=== PATIENT | male | born 1940 | race Caucasian/White ===

== ENCOUNTER 2016-09-19 20:01 | Emergency (ER) | payer OTHER ==
[2016-09-19 20:15] VITALS: TEMP 97.7
--- NOTE | 2016-09-19 20:34 | EDPHY ---
H & P Stated Complaint: high BP at [facility] 170/100 Time Seen by Provider: 09/19/16 20:34 - Personal History Current Tetanus/Diphtheria Vaccine: Yes Current Tetanus Diphtheria and Acellular Pertussis (TDAP): Yes Tetanus Vaccine Date: 2016 - Medical/Surgical History Hx Asthma: No Hx Chronic Respiratory Disease: No Hx Diabetes: No Hx Cardiac Disease: No Hx Renal Disease: No Hx Cirrhosis: No Hx Alcoholism: No Hx HIV/AIDS: No Hx Splenectomy or Spleen Trauma: No Other PMH: craniotomy 2009, S[facility], - Social History Smoking Status: Former smoker Constitutional: Initial Vital Signs Temperature (C) 36.5 C 09/19/16 20:11 Heart Rate 74 09/19/16 20:11 Respiratory Rate 16 09/19/16 20:11 Blood Pressure 106/100 H 09/19/16 20:11 O2 Sat (%) 95 09/19/16 20:11 O2 Delivery Mode Room Air Allergies/Adverse Reactions: No Known Allergies Allergy (Unverified 09/19/16 20:16) Home Medications: Medication Instructions Recorded ASPIRIN 09/19/16 Citalopram 09/19/16 Coq-10 09/19/16 Glucosamine 09/19/16 LaMICtal 09/19/16 Losartan Potassium 09/19/16 [place] 1,000 mg Softgel 09/19/16 VITAMIN D 09/19/16 Medical Decision Making ED Course/Re-evaluation: CHIEF COMPLAINT: High blood pressure. HISTORY OF PRESENT ILLNESS: The patient is a 76-year-old male with a history of hypertension on Losartan who presents for high blood pressure readings. He reports that his blood pressure at [facility] was 174/100. He has been compliant with his Losartan. He denies any symptoms with the blood pressure. REVIEW OF SYSTEMS: A 10 point review of systems was performed and is negative with the exception of the elements mentioned in the history of present illness. PHYSICAL EXAM: HR, BP, O2 Sat, RR. Temp noted General Appearance: Alert, well hydrated, appropriate, and non-toxic appearing. Head: Atraumatic without scalp tenderness or obvious injury Eyes: Pupils equal, round, reactive to light and accommodation, EOMI, no trauma , no injection. Ears: Clear bilaterally, no perforation, normal landmarks Nose: Atraumatic, no rhinorrhea, clear. Throat: There is no erythema or exudates, no lesions, normal tonsils, mucus membranes moist. Neck: Supple, 2+ carotid upstroke, nontender, no lymphadenopathy. Respiratory: No retractions, no distress, no wheezes, and no accessory muscle use. Lungs are clear to auscultation bilaterally. Cardiovascular: Regular rate and rhythm, no murmurs, rubs, or gallops. Bilateral carotid, radial, dorsalis pedis, and posterior tibial pulses intact. Good capillary refill all extremities. Gastrointestinal: Abdomen is soft, nontender, non-distended, no masses, no rebound, no guarding, no peritoneal signs. Musculoskeletal: Normal active ROM of all extremities, atraumatic. Neurological: Alert, appropriate, and interactive. The patient has normal DTRs and non-focal cranial nerves, motor, sensory, and cerebellar exam. Skin: No rashes, good turgor, no nodules on palpation. Past medical history:Hypertension, seizure. Past surgical history:Denies. Family history:N/A. Social history:Lives at [facility]. DIAGNOSTICS/PROCEDURES/CRITICAL CARE TIME: DIFFERENTIAL DIAGNOSIS: MEDICAL DECISION MAKIN-year-old male presents with hypertension. He has a history of hypertension and takes Losartan. Today his blood pressure was 174/100 which is "astronomical " for him. In the ED today his blood pressure is 157/94. He has no symptoms currently. He shows no evidence of end-organ damage, hypertensive urgency, or hypertensive emergency. We will give him an extra dose of his 25mg Losartan and then discharge back to the floor. Departure - Departure Disposition: Home, Routine, Self-Care Clinical Impression: Hypertension Qualifiers: Hypertension type: unspecified secondary hypertension Qualified Code(s): I15.9 - Secondary hypertension, unspecified; I15 - Secondary hypertension Condition: Good Instructions: Hypertension (ED) Additional Instructions: Follow up with Dr. Weldon this week for reevaluation. Continue to take your Losartan as prescribed. Return to the emergency department for any serious worsening of condition. Referrals: Addy Serna MD [Primary Care Provider] - As per Instructions Daniella Weldon MD [Medical Doctor] - As per Instructions Report Scribed for: Gustavo Brown Report Scribed by: Alexx Newsome Date of Report: 09/19/16 Time of Report: 20:39
[2016-09-19 20:38] VITALS: BP 157/94; PULSE 78; RESP 18; O2SAT 94
[2016-09-19] MEDS ORDERED: LOSARTAN POTASSIUM 25 MG TAB PO ONE (21:00)
== END 2016-09-19 21:02 | disposition home or self-care (01) ==
DX: I10 Essential (primary) hypertension (principal); Z79.82 Long term (current) use of aspirin; Z87.891 Personal history of nicotine dependence

== ENCOUNTER → 2018-01-24 | Outpatient (CLI) | payer OTHER | LOC: FIMAGING 14:50 | PROVIDERS: ATTEND Family Medicine Geriatric Medicine | DX: N62 Hypertrophy of breast (principal) ==

== ENCOUNTER → 2018-03-12 | Outpatient (CLI) | payer OTHER | LOC: BHFA 13:00 | PROVIDERS: ATTEND Internal Medicine Cardiovascular Disease | DX: I25.10 Atherosclerotic heart disease of native coronary artery without angina pectoris (principal); I10 Essential (primary) hypertension ==